=== PATIENT | male | born 1995 | race Two or more races ===

== ENCOUNTER 2018-09-26 01:02 | Emergency (ER) | payer OTHER ==
[~2018-09-26] VITALS: Ht 172.7 cm; Wt 77.1 kg
[2018-09-26] MEDS ORDERED: EPIPEN 2-P0.3 MG/0.3 IM (04:49)
[2018-09-26] MEDS ORDERED: MEDROLPACK PO (04:49)
[2018-09-26] MEDS ORDERED: ZYRTEC10 M3 (04:54)
== END 2018-09-26 20:17 | disposition home or self-care (01) ==
LOC: ER 01:02
DX: T78.1XXA Other adverse food reactions, not elsewhere classified, initial encounter (principal); R21 Rash and other nonspecific skin eruption